=== PATIENT | female | born 1965 ===

== ENCOUNTER 2017-10-23 07:00 | Day surgery (SDC) | payer OTHER ==
[~2017-10-23] VITALS: Ht 172.7 cm; Wt 77.1 kg
[~2017-10-23 07:00] MED LIST: COZAAR50 MG PO; INTESTINEX1 CA1 PO; MELOXICAM15 MG PO; PERCOCET 5/3251 TAB PO; PRILOSEC20 MG PO; SYNTHROID175 MCG PO
== END 2017-10-23 13:00 | disposition home or self-care (01) ==
LOC: CIR.AMB 07:00 → SURH 07:00 → O/R 11:10 → EDSTATUS 13:00 → CIR.AMB 13:00 → SURH 13:00
DX: N83.291 Other ovarian cyst, right side (principal)